=== PATIENT | male | born 1995 | race Asian ===

== ENCOUNTER 2022-10-20 13:48 | Emergency (ER) | payer BC ==
[~2022-10-20] VITALS: Ht 180.3 cm; Wt 94.0 kg
[2022-10-20] MEDS ORDERED: ONDANSETRON HCL 4MG/2ML INJ IV ONE (15:30)
[2022-10-20] MEDS ORDERED: SODIUM CHLORIDE 0.9% 1,000 ML IV ONE (15:30)
[2022-10-20] MEDS ORDERED: PANTOPRAZOLE SODIUM 40 MG/VIAL IV ONE (15:30)
[2022-10-20 15:39] LABS: BASOPHILS % 0.4 % (0.0-2.0); EOSINOPHILS % 0.2 % (0.0-5.0); HEMATOCRIT. 40.6 % (42.0-52.0); HEMOGLOBIN. 12.8 g/dL (14.0-18.0); LYMPHOCYTES % 14.2 % (20.0-50.0); MEAN CORPUSCULAR VOLUME 66.8 fL (80.0-94.0); MEAN PLATELET VOLUME 7.5 fl (7.4-10.4); NEUTROPHILS % 79.2 % (40.0-76.0); PLATELET 624 x1000/uL (130-400); RED BLOOD CELL COUNT 6.08 mill/uL (4.7-6.1); RED CELL DISTRIBUTION WIDTH 22.3 % (11.6-14.6)
[2022-10-20 15:49] LABS: INR 1.1; PARTIAL THROMBOPLASTIN TIME 27.1 sec (23.4-31.0); PROTHROMBIN TIME 11.4 sec (9.6-11.0)
[2022-10-20 15:51] LABS: CHLORIDE 106 mEq/L (98-107)
[2022-10-20 16:07] LABS: PLATELET ESTIMATE INCREASED
[2022-10-20] MEDS ORDERED: MORPHINE SULFATE 4 MG/ML CPJ (NOT FOR IM USE) IV STA (17:43)
[2022-10-20] MEDS ORDERED: ONDANSETRON HCL 4MG/2ML INJ IV STA (17:43)
[2022-10-20] MEDS ORDERED: ONDANSETRON HCL 4MG/2ML INJ IV NR (19:30)
[2022-10-21 02:38] VITALS: BP 154/75
== END 2022-10-21 02:42 | disposition short-term general hospital (02) ==
LOC: ER 13:48 → ENRESERV 17:31 → ER 10-21 02:42 → CANBEDREQ 10-21 11:05
DX: K92.2 Gastrointestinal hemorrhage, unspecified (principal); Z20.822 Contact with and (suspected) exposure to COVID-19
CPT/HCPCS: 36415; 71045; 80053; 83690; 84484; 85025; 85610; 85730; 86850; 86900; 86901; 87426; 93005; 96361; 96374; 96375; 96376; 99285; C9113; C9803; J2270; J2405; J7030